=== PATIENT | female | born 1955 | race Caucasian/White ===

== ENCOUNTER 2021-12-15 22:32 | Emergency (ER) | payer MEDICARE, MEDICAID, SELFPAY ==
[2021-12-15 22:29] VITALS: BP 176/105; PULSE 91; RESP 16; TEMP 36.2; O2SAT 99
--- NOTE | 2021-12-15 22:42 | ED_ITS ---
HPI - General Adult General Chief complaint: Unspecified Stated complaint: midline arm iv pulled out - needs iv abx Time Seen by Provider: 12/15/21 22:33 History of Present Illness HPI narrative: Pt sent from [place] where she is receiving IV antibiotics. Pt's midline is not working and doesn't flush so sent to ER to get IV. Related Data Allergies Allergy/AdvReac Type Severity Reaction Status Date / Time No Known Allergies Allergy Verified 12/15/21 22:41 Review of Systems Review of Systems: All systems reviewed & are unremarkable except as noted in HPI and below Exam Const: General: cooperative, healthy appearing and no acute distress Nutritional Appearance: average body habitus Orientation/consciousness: patient oriented x3 Limitations: no limitations HENMT: Head: normal to inspection Neck: Neck: normal visual inspection Chest: Chest palpation & inspection: normal inspection of the chest Resp: Effort & Inspection: normal respiratory effort Auscultation: clear to auscultation bilaterally Cardio: Rate: regular rate Rhythm: regular rhythm GI: Inspection: normal to inspection Auscultation: normal bowel sounds Skin: General skin exam: normal color Lesions: no lesions Rashes: no rashes Neuro: General: patient oriented x3 Cognition (Neuro): normal cognition Speech: normal speech Extrem: General: normal to inspection and full ROM Psych: Appearance: grossly normal Mental Status: mental status grossly nor mal Speech and movement: Normal speech and movement present Affect: normal affect Attitude: cooperative Course Vital Signs Vital signs: Vital Signs Temperature 97.2 F L 12/15/21 22:29 Pulse Rate 91 12/15/21 22:29 Respiratory Rate 16 12/15/21 22:29 Blood Pressure 176/105 H 12/15/21 22:29 Pulse Oximetry 99 12/15/21 22:29 Temperature 97.2 F L 12/15/21 22:29 Pulse Rate 91 12/15/21 22:29 Respiratory Rate 16 12/15/21 22:29 Blood Pressure 176/105 H 12/15/21 22:29 Pulse Oximetry 99 12/15/21 22:29 Medical Decision Making Vital Signs Vital Signs: Vital Signs Temperature 97.2 F L 12/15/21 22:29 Pulse Rate 91 12/15/21 22:29 Respiratory Rate 16 12/15/21 22:29 Blood Pressure 176/105 H 12/15/21 22:29 Pulse Oximetry 99 12/15/21 22:29 Temperature 97.2 F L 12/15/21 22:29 Pulse Rate 91 12/15/21 22:29 Respiratory Rate 16 12/15/21 22:29 Blood Pressure 176/105 H 12/15/21 22:29 Pulse Oximetry 99 12/15/21 22:29 Discharge Plan Discharge Clinical Impression: Occluded PICC line Patient Disposition: Home, Self-Care Condition: Stable Instructions: Antibiotic Form, PICC (Peripherally Inserted Central Catheter) (DC)
--- NOTE | 2021-12-15 23:11 | PC.NURSE ---
Assuming care of pt.
--- NOTE | 2021-12-15 23:35 | PC.NURSE ---
Picc line redressed able to flush and able to get blood return. PT has no other complaints.
[2021-12-16 00:55] VITALS: BP 156/87; PULSE 85; RESP 18; TEMP 36.9; O2SAT 100
== END 2021-12-16 00:40 ==
PROVIDERS: Emergency Provider Emergency Medicine
DX: T82.594A Other mechanical complication of infusion catheter, initial encounter (principal)
CPT/HCPCS: 99282